=== PATIENT | male | born 1965 | race Two or more races ===

== ENCOUNTER 2025-06-26 12:17 | Emergency (ER) | payer OTHER ==
[~2025-06-26] VITALS: Ht 167.6 cm; Wt 108.9 kg
[~2025-06-26 12:17] MED LIST: AMBIEN10 MG; DIOVAN40 MG; ESCITALOPRAM OX10 MG; GLUCOPHAGE XR750 MG; IBUPROFEN800 MG PO
[2025-06-26] MEDS ORDERED: LEVO-T25 MCG PO (12:56)
[2025-06-26] MEDS ORDERED: METFORMIN HCL1000 M2 PO (12:56)
[2025-06-26] MEDS ORDERED: ENALAPRILAT DIHYDRATE 1.25 MG/ML VIAL IV ONE ×2 (14:15→14:16)
[2025-06-26] MEDS ORDERED: CEFTRIAXONE SODIUM 1,000 MG VIAL IV ONE (14:15)
[2025-06-26] MEDS ORDERED: CEFTRIAXONE SODIUM 1,000 MG VIAL ONE (14:16)
[2025-06-26 15:10] LABS: BASO % 0.7 % (0.1-1.2); EOS # 0.14 (0.04-0.54); EOS % 1.7 % (0.7-7.0); LYMPH # 2.65 (1.18-3.74); LYMPH % 32.0 % (19.3-53.1); MEAN PLATELET VOLUME 11.30 fl (9.4-12.4); MONO # 0.69 (0.24-0.82); MONO % 8.3 % (4.7-12.5); NEUT # 4.69 (1.56-6.13); NEUT % 56.8 % (34.0-71.1); RED CELL DISTRIBUTION WIDTH 12.6 % (11.6-14.4)
[2025-06-26 15:14] LABS: URINE APPEARANCE Clear; URINE BILIRRUBIN Negative (NEGATIVE); URINE BLOOD Negative; URINE COLOR Yellow; URINE KETONE Negative (NEGATIVE); URINE LEUKOCYTE Negative; URINE NITRATE Negative; URINE UROBILINOGEN 0.2 E.U./dl
[2025-06-26 15:20] LABS: URINE BACTERIA 11.9 uL (0.0-1933)
[2025-06-26 15:22] LABS: ERYTHROCYTE SEDIMENTATION RATE 45 mm/hr (0-20)
[2025-06-26 15:23] LABS: URINE CAST 0.73 uL (0.0-1.40); URINE EPITHELIAL CELLS 0.6 uL (0.0-38.8); URINE GLUCOSE 500 MG/DL (NEGATIVE); URINE PROTEIN 100 (NEGATIVE); URINE RBC 0.8 uL (0.0-20.8); URINE WBC 0.1 uL (0.0-23.2)
[2025-06-26 15:48] LABS: ALT/SGPT 51.0 U/L (12-78); AST/SGOT 20.0 U/L (15-37); BILIRUBIN TOTAL 0.41 mg/dL (0.3-1.2); BUN CREA RATIO 15.0 (7.0-25.0); CREATININE SERUM 0.88 mg/dL (0.70-1.30); GFR 88.64; GLOBULINA 4.6 G/DL (2.4-3.5); GLUCOSE FASTING 83.0 mg/dL (65-100); OSMOLALITY SERUM 275.0 MOSM/KG (275-295)
[2025-06-26] MEDS ORDERED: AMOX-CLAV 875-1 EAC1 PO (16:04)
== END 2025-06-26 16:28 | disposition home or self-care (01) ==
LOC: ER 12:17
DX: L03.031 Cellulitis of right toe (principal); E11.9 Type 2 diabetes mellitus without complications; Z79.84 Long term (current) use of oral hypoglycemic drugs; E03.9 Hypothyroidism, unspecified; I10 Essential (primary) hypertension